=== PATIENT | male | born 1990 | race African-American/Black ===

== ENCOUNTER 2017-09-14 18:10 | Emergency (ER) | payer BC ==
[~2017-09-14] VITALS: Ht 195.6 cm; Wt 86.4 kg
[~2017-09-14 18:10] MED LIST: NO HOME MEDICATIONS
[2017-09-14 18:17] VITALS: BP 137/80
[2017-09-14 19:05] LABS: STREP SCREEN NEGATIVE
[2017-09-14 19:19] LABS: INFLUENZA A NEGATIVE; INFLUENZA B NEGATIVE
[2017-09-14 20:43] VITALS: PULSE 76; TEMP 99.8
== END 2017-09-14 20:43 | disposition home or self-care (01) ==
LOC: COL.ER 18:10
PROVIDERS: Physician Assistant
DX: J06.9 Acute upper respiratory infection, unspecified (principal); J02.9 Acute pharyngitis, unspecified; F17.200 Nicotine dependence, unspecified, uncomplicated